=== PATIENT | male | born 1975 | race Caucasian/White ===

== ENCOUNTER → 2017-06-18 | Outpatient (CLI) | payer BC ==
--- NOTE | 2017-06-22 11:31 | SLEEPHOME ---
DATE OF PROCEDURE: 06/18/2017 REFERRING PHYSICIAN: Althea Seay INTERPRETATION: Diagnostic home sleep testing was performed due to concern for the obstructive sleep apnea syndrome. For testing a NOX-T3 respiratory monitoring device was used. Continuous record was made of pulse, oxygen saturation, airflow, chest and abdominal strain, and bony position. 9 hours and 59 minutes of data were reviewed. Of these, 7 hours and 8 minutes were marked as time in bed. During the interval marked time in bed, there were 66 respiratory events identified of 10 seconds in duration or greater for a respiratory event index of 9.2. The events were primarily obstructive. Baseline pulse rate 63 beats per minute. Pulse rate ranged 50 to 99 beats per minute. Baseline saturation 93%. Saturations were seen as low as 80%. Testing was performed in both the supine and nonsupine positions. IMPRESSION: Abnormal home sleep testing with repetitive respiratory events and oxygen desaturations to 80% with a respiratory event index of 9.2, is consistent with the obstructive sleep apnea syndrome. RECOMMENDATION: The patient should be encouraged to return to the sleep disorder center for pressure therapy. In the interim, alcohol and sedative avoidance should be practiced and caution and exercised during operation of motor vehicles.
== END ==
LOC: M SLEEP HO 11:18
PROVIDERS: ATTEND Nurse Practitioner Adult Health
DX: G47.30 Sleep apnea, unspecified (principal)

== ENCOUNTER → 2019-03-31 | Outpatient (REF) | payer BC ==
[~2019-03-31] MED LIST: ATOR40TA75; LORA0.5T11; ZOLP10TA2
== END ==
LOC: M LAB REF 13:37
PROVIDERS: ATTEND Family Medicine
DX: R53.83 Other fatigue (principal); M79.10 Myalgia, unspecified site

== ENCOUNTER 2019-05-13 20:15 | Emergency (ER) | payer BC ==
[~2019-05-13] VITALS: Ht 185.4 cm; Wt 104.5 kg
[2019-05-13 21:20] LABS: BASO # 0.1 10^3/uL (0.0-0.2); BASO % 0.7 % (0.0-1.0); EOS # 0.1 10^3/uL (0.0-0.5); HEMATOCRIT 39.7 % (42.0-52.0); LYMPH # 1.3 10^3/uL (1.5-5.0); LYMPH % 13.4 % (24.0-44.0); MEAN CORPUSCULAR HEMOGLOBIN 31.8 pg (27.0-33.0); MEAN CORPUSCULAR HGB CONC 35.3 g/dl (32.0-36.5); MEAN CORPUSCULAR VOLUME 90.2 fl (80.0-96.0); MONO # 0.5 10^3/uL (0.0-0.8); NEUTROPHILS # 7.8 10^3/uL (1.5-8.5); NEUTROPHILS % 79.2 % (36.0-66.0); PLATELET COUNT, AUTOMATED 243 10^3/uL (150-450); WHITE BLOOD COUNT 9.8 10^3/uL (4.0-10.0)
[2019-05-13 21:35] LABS: BLOOD UREA NITROGEN 27 MG/DL (7-18); CALCIUM LEVEL 8.4 MG/DL (8.5-10.1); CARBON DIOXIDE LEVEL 27 MEQ/L (21-32); CHLORIDE LEVEL 107 MEQ/L (98-107); CK-MB VALUE MASS < 1.0 NG/ML (<3.6); CPK CREATINE PHOSPHOKINASE 77 U/L (39-308); CREATININE FOR GFR 1.59 MG/DL (0.70-1.30); GLOMERULAR FILTRATION RATE 51.1 (>60); GLUCOSE, FASTING 100 MG/DL (70-100); POTASSIUM SERUM 4.1 MEQ/L (3.5-5.1); SODIUM LEVEL 140 MEQ/L (136-145); TROPONIN I < 0.02 NG/ML (< 0.10)
[2019-05-13] MEDS ORDERED: NS 1,000 ML IV ONE (22:45)
[2019-05-14 00:15] VITALS: BP 149/92
--- NOTE | 2019-05-14 01:01 | ECGEPIP ---
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
--- NOTE | 2019-05-14 01:02 | ECGEPIP ---
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
[2019-05-14 01:20] LABS: CK-MB VALUE MASS < 1.0 NG/ML (<3.6); CPK CREATINE PHOSPHOKINASE 68 U/L (39-308); MB/CK RELATIVE INDEX 1.47 (< OR =4); TROPONIN I < 0.02 NG/ML (< 0.10)
--- NOTE | 2019-05-14 05:35 | REP ---
Clinical: Chest pain . Comparison: 12/23/2012 . Findings: The mediastinum and cardiac silhouette are stable and within normal limits for portable technique. The lung li are clear without acute consolidation, effusion, or pneumothorax. Skeletal structures are intact. Impression: No acute cardiopulmonary process appreciated. Electronically Signed by Christian Segura MD 05/14/2019 05:27 A
== END 2019-05-14 02:03 | disposition home or self-care (01) ==
LOC: M ED 20:15
DX: F41.1 Generalized anxiety disorder (principal); E86.0 Dehydration; E78.5 Hyperlipidemia, unspecified; G47.30 Sleep apnea, unspecified; Z79.899 Other long term (current) drug therapy

== ENCOUNTER 2023-01-03 09:53 | Day surgery (SDC) | payer BC ==
[~2023-01-03] VITALS: Ht 182.9 cm; Wt 103.3 kg
[~2023-01-03 09:53] MED LIST changes: +ATIV1TAB10 PO; -ATOR40TA75; +ATOR40TA75 PO; -LORA0.5T11; +LORA0.5T5; +NS 1,000 ML IV ONE; -ZOLP10TA2; +ZOLP10TA2 PO
[2023-01-03] MEDS ORDERED: fentaNYL 100 MCG/2 ML INJECTION As Ordered ONE (10:23)
[2023-01-03] MEDS ORDERED: LIDOCAINE 2% 100MG/5ML SDV (FOR ANES.) As Ordered ONE (10:23)
[2023-01-03] MEDS ORDERED: propofoL 500 MG/50 ML VIAL As Ordered ONE (10:27)
[2023-01-03] MEDS ORDERED: MIDAZOLAM INJ 2MG/2ML VIAL As Ordered ONE (10:55)
[2023-01-03 11:54] VITALS: TEMP 97.2
[2023-01-03 12:18] VITALS: BP 121/76; O2SAT 98
== END 2023-01-03 12:30 | disposition home or self-care (01) ==
LOC: M OPP 09:53
PROVIDERS: ATTEND Surgery
DX: D12.8 Benign neoplasm of rectum (principal); K63.5 Polyp of colon; K21.00 Gastro-esophageal reflux disease with esophagitis, without bleeding; K31.89 Other diseases of stomach and duodenum; K30 Functional dyspepsia
CPT/HCPCS: 43239; 45385; 88305; J2250; J3010

== ENCOUNTER → 2023-05-29 | Outpatient (CLI) | payer BC ==
[~2023-05-29] MED LIST changes: -NS 1,000 ML IV ONE
[2023-05-29 16:04] LABS: FOLATE 19.09 NG/ML (>5.4)
== END ==
LOC: M WUC 09:13
PROVIDERS: ATTEND Psychiatry & Neurology Neurology
DX: Z01.89 Encounter for other specified special examinations (principal)

== ENCOUNTER → 2023-12-18 | Outpatient (REF) | payer BC | LOC: M LAB REF 16:36 | PROVIDERS: ATTEND Family Medicine | DX: E78.00 Pure hypercholesterolemia, unspecified (principal) ==

== ENCOUNTER → 2024-05-12 | Outpatient (REF) | payer BC ==
[2024-05-14 09:23] LABS: LDL DIRECT 130 mg/dL (<100)
== END ==
LOC: M LAB REF 17:41
PROVIDERS: ATTEND Family Medicine
DX: E78.00 Pure hypercholesterolemia, unspecified (principal)

== ENCOUNTER → 2025-03-23 | Outpatient (REF) | payer BC ==
[2025-03-24 10:27] LABS: LDL DIRECT 165 mg/dL (<100)
== END ==
LOC: M LAB REF 15:20
PROVIDERS: ATTEND Family Medicine
DX: E78.00 Pure hypercholesterolemia, unspecified (principal)